=== PATIENT | male | born 1960 | race Two or more races ===

== ENCOUNTER 2016-12-12 07:55 | Emergency (ER) | payer OTHER, MEDICARE ==
[2016-12-12 08:09] VITALS: BP 119/88
--- NOTE | 2016-12-12 09:33 | ER Document Report ---
ED Substance Abuse / Acc. OD - General Chief Complaint: ETOH Abuse Stated Complaint: ALCOHOL WITHDRAWAL Notes: Patient is a 48-year-old male presents emergency Department complaining of epigastric discomfort that started this morning. Patient states that he has a known history of chronic alcohol abuse but hasn't been drinking for at least 6 months. Patient states that yesterday Tuesday during the day he had a couple of mixed drinks approximately 5 drinks of Bacardi with soda throughout the day. he denies any nausea or vomiting yesterday for abdominal pain. Patient states that he woke up this morning with some epigastric discomfort and given his history he started to become severe evaluated. At this time she states that he does have some epigastric burning but otherwise denies any nausea, vomiting, diarrhea, constipation Past medical history significant for GERD, hyperlipidemia Past surgical history significant for C3-C7 spinal fusion, appendectomy Social history significant for history of alcohol abuse, nonsmoker, no drug use PCP at the [facility] TRAVEL OUTSIDE OF THE [place] IN LAST 30 DAYS: No - Related Data Allergies/Adverse Reactions: Penicillins Allergy (Unknown, Verified 12/12/16 08:13) Past Medical History - Social History Smoking Status: Never Smoker Chew tobacco use (# tins/day): No Frequency of alcohol use: Heavy Drug Abuse: None Family History: Reviewed & Not Pertinent - Past Medical History Cardiac Medical History: Reports: Hx Hypercholesterolemia Renal/ Medical History: Denies: Hx Peritoneal Dialysis GI Medical History: Reports: Hx Gastroesophageal Reflux Disease Psychiatric Medical History: Reports: Hx Anxiety, Hx Depression Past Surgical History: Reports: Hx Appendectomy, Hx Herniorrhaphy, Hx Orthopedic Surgery - C3-7 FUSION, LEFT SHOULDER SURGERY. - Immunizations Hx Diphtheria, Pertussis, Tetanus Vaccination: Yes Review of Systems - Review of Systems Constitutional: No symptoms reported EENT: No symptoms reported Cardiovascular: No symptoms reported Respiratory: No symptoms reported Gastrointestinal: See HPI Genitourinary: No symptoms reported Male Genitourinary: No symptoms reported Musculoskeletal: No symptoms reported Skin: No symptoms reported Hematologic/Lymphatic: No symptoms reported Neurological/Psychological: No symptoms reported Physical Exam - Vital signs Vitals: Temp Pulse Resp BP Pulse Ox 97.3 F 109 H 20 119/88 H 100 12/12/16 08:07 12/12/16 08:07 12/12/16 08:07 12/12/16 08:07 12/12/16 08:07 - Notes Notes: PHYSICAL EXAM GENERAL: Alert, interacts well. HEAD: Normocephalic, atraumatic. EYES: Pupils equal, round, and reactive to light. Extraocular movements intact. ENT: Oral mucosa moist, tongue midline. NECK: Full range of motion. Supple. Trachea midline. LUNGS: Clear to auscultation bilaterally, no wheezes, rales, or rhonchi. No respiratory distress. HEART: Regular rate and rhythm. No murmurs, gallops, or rubs. ABDOMEN: Soft, nondistended, nontender. No guarding, rebound, or rigidity.. Bowel sounds present in all 4 quadrants. EXTREMITIES: Moves all 4 extremities spontaneously. No edema, radial and dorsalis pedis pulses 2/4 bilaterally. No cyanosis. NEUROLOGICAL: Alert and oriented x3. Normal speech. PSYCH: Normal affect, normal mood. SKIN: Warm, dry, normal turgor. No rashes or lesions noted. Course - Re-evaluation Re-evalutation: 12/12/16 09:37 The patient has decided not to proceed with further recommended testing or treatment to determine the cause of their symptoms. The risks and alternatives to the recommendation were discussed and the patient voiced understanding. The patient appears clinically to have capacity to make this decision. The patient was instructed that he/she could return to the ER at any time to complete the testing or treatment. - Vital Signs Vital signs: Temp Pulse Resp BP Pulse Ox 97.3 F 109 H 20 119/88 H 100 12/12/16 08:07 12/12/16 08:07 12/12/16 08:07 12/12/16 08:07 12/12/16 08:07 Discharge - Discharge Clinical Impression: Epigastric pain Condition: Good Disposition: AGAINST MEDICAL ADVICE
== END 2016-12-12 09:22 | disposition left against medical advice (07) ==
LOC: ER 07:55
DX: R10.13 Epigastric pain (principal); F10.239 Alcohol dependence with withdrawal, unspecified
CPT/HCPCS: 99283

== ENCOUNTER 2016-12-15 05:00 | Emergency (ER) | payer OTHER, MEDICARE ==
[2016-12-15 05:35] LABS: ABSOLUTE LYMPHOCYTES (AUTO) 1.3 10^3/uL (0.5-4.7); ABSOLUTE MONOCYTES (AUTO) 0.5 10^3/uL (0.1-1.4); ABSOLUTE NEUT (AUTO) 3.8 10^3/uL (1.7-8.2); BASOPHILS % (AUTO) 0.8 % (0-2); EOSINOPHILS % (AUTO) 0.5 % (0-6); HEMATOCRIT 44.7 % (37.9-51.0); HEMOGLOBIN 15.3 g/dL (13.5-17.0); HGB HCT DIFFERENCE 1.2; MEAN CORPUSCULAR HEMOGLOBIN 30.3 pg (27.0-33.4); MEAN CORPUSCULAR HGB CONC 34.3 g/dL (32.0-36.0); MEAN CORPUSCULAR VOLUME 88 fl (80-97); RED BLOOD COUNT 5.05 10^6/uL (4.35-5.55); RED CELL DISTRIBUTION WIDTH 13.1 % (11.5-14.0); SEGMENTED NEUTROPHILS % (AUTO) 67.7 % (42-78); WHITE BLOOD COUNT 5.6 10^3/uL (4.0-10.5)
[2016-12-15 05:49] LABS: ALANINE AMINOTRANSFERASE 101 U/L (21-72); ALKALINE PHOSPHATASE 69 U/L (38-126); ANION GAP 10 (5-19); ASPARTATE AMINO TRANSFERASE 117 U/L (17-59); BILIRUBIN,TOTAL 2.2 mg/dL (0.2-1.3); BLOOD UREA NITROGEN 13 mg/dL (7-20); CALCIUM 9.3 mg/dL (8.4-10.2); CARBON DIOXIDE 27 mmol/L (22-30); CHLORIDE 103 mmol/L (98-107); CREATININE RESULT 1.01 mg/dL (0.52-1.25); GLUCOSE 96 mg/dL (75-110); LIPASE 182.3 U/L (23-300); POTASSIUM 4.4 mmol/L (3.6-5.0); TOTAL PROTEIN 6.9 g/dL (6.3-8.2)
[2016-12-15 06:38] LABS: ADD ON TESTING BLD IN LAB ACKNOWLEDGE
[2016-12-15] MEDS ORDERED: ONDANSETRON HCL INJ/PF 4 MG/2 ML SDV IV ONE (06:42)
[2016-12-15] MEDS ORDERED: NORMAL SALINE 1000 ML 1,000 ML IV ONE ×2 (06:42→07:31)
--- NOTE | 2016-12-15 06:43 | ER Document Report ---
ED GI/ - General Time seen by provider: 06:36 Mode of Arrival: Ambulatory Information source: Patient TRAVEL OUTSIDE OF THE U[place] IN LAST 30 DAYS: No - HPI Patient complains to provider of: Other - nausea Onset: Other - see HPI note Associated symptoms: Lightheaded, Nausea <CATHI BENITO - Last Filed: 12/15/16 07:22> <SYL HART - Last Filed: 12/15/16 11:14> - General Chief Complaint: Abdominal Pain Stated Complaint: ABDOMINAL PAIN Notes: Patient is a 56 year old male presenting to the emergency department for nausea and lightheadedness since yesterday. Patient states he "feels faint and lightheaded." Patient was seen in [facility] ED on 12/12/14 and [facility] records indicate the patient had been heavily drinking EtOH on Tuesday (12/11/16) after supposedly he had quit drinking EtOH for the previous 6 months. Patient states that he was also seen at [facility] on Tuesday. Triage not states patient complains of abdominal pain however, patient denies any abdominal pain during exam. Patient denies any cough. (CATHI BENITO) - Related Data Allergies/Adverse Reactions: Penicillins Allergy (Unknown, Verified 12/12/16 08:13) Past Medical History - General Information source: Patient - Social History Smoking Status: Never Smoker Cigarette use (# per day): No Chew tobacco use (# tins/day): No Smoking Education Provided: No Frequency of alcohol use: Heavy Family History: None GI Medical History: Reports: Hx Gastroesophageal Reflux Disease, Other - pancreatitis Psychiatric Medical History: Reports: Hx Anxiety, Hx Depression Past Surgical History: Reports: Hx Appendectomy, Hx Herniorrhaphy, Hx Orthopedic Surgery - C3-7 FUSION, LEFT SHOULDER SURGERY. - Immunizations Hx Diphtheria, Pertussis, Tetanus Vaccination: Yes <CATHI BENITO - Last Filed: 12/15/16 07:22> Review of Systems - Review of Systems Constitutional: No symptoms reported EENT: No symptoms reported Cardiovascular: See HPI, Lightheaded Respiratory: No symptoms reported Gastrointestinal: See HPI, Nausea Genitourinary: No symptoms reported Male Genitourinary: No symptoms reported Musculoskeletal: No symptoms reported Skin: No symptoms reported Hematologic/Lymphatic: No symptoms reported Neurological/Psychological: No symptoms reported -: Yes All other systems reviewed and negative <CATHI BENITO - Last Filed: 12/15/16 07:22> Physical Exam - General General appearance: Appears well, Alert In distress: Mild - HEENT Head: Normocephalic, Atraumatic Eyes: Normal Pupils: PERRL Mucous membranes: Dry - Respiratory Respiratory status: No respiratory distress Chest status: Nontender Breath sounds: Normal Chest palpation: Normal - Cardiovascular Rhythm: Regular Heart sounds: Normal auscultation Murmur: No - Abdominal Inspection: Normal Distension: No distension Bowel sounds: Normal Tenderness: Nontender Organomegaly: No organomegaly - Back Back: Normal, Nontender - Extremities General upper extremity: Normal inspection, Normal ROM, Normal strength General lower extremity: Normal inspection, Normal ROM, Normal strength - Neurological Neuro grossly intact: Yes Cognition: Normal Orientation: AAOx4 Alexx Coma Scale Eye Opening: Spontaneous [place] Coma Scale Verbal: Oriented Alexx Coma Scale Motor: Obeys Commands [place] Coma Scale Total: 15 Speech: Normal - Psychological Associated symptoms: Normal affect, Normal mood - Skin Skin Temperature: Warm Skin Moisture: Dry <CATHI BENITO - Last Filed: 12/15/16 07:22> <SYL HART - Last Filed: 12/15/16 11:14> - Vital signs Vitals: Resp 18 12/15/16 05:28 Course - Laboratory Result Diagrams: 12/15/16 05:20 12/15/16 05:20 <JIGNACATHI - Last Filed: 12/15/16 07:22> - Laboratory Result Diagrams: 12/15/16 05:20 12/15/16 05:20 <SYL HART - Last Filed: 12/15/16 11:14> - Re-evaluation Re-evalutation: 12/15/16 09:09 The patient is nauseous again, is frequently coughing and spitting and trying to retch. He has not urinated much. Looking into the orders, it would appear he never got the first liter of normal saline that was ordered initially. The second liter that was ordered almost an hour later appears to have been given. 12/15/16 10:53 At this time the patient is sound asleep and snoring. He has received a total of 3 L of IV fluids. 12/15/16 11:06 Patient is now awake for vital signs. He states he is feeling much better and the nausea has improved "most definitely". (SYL HART) - Vital Signs Vital signs: Temp Pulse Resp BP Pulse Ox 99.3 F 108 H 18 140/108 H 96 12/15/16 05:35 12/15/16 05:35 12/15/16 05:35 12/15/16 05:35 12/15/16 05:35 - Laboratory Laboratory results interpreted by me: 12/15/16 12/15/16 05:20 05:20 Total Bilirubin 2.2 H AST 117 H ALT 101 H Creatine Kinase 678 H Discharge <CATHI BENITO - Last Filed: 12/15/16 07:22> <SYL HART - Last Filed: 12/15/16 11:14> - Discharge Clinical Impression: Nausea, Dizzy, Lightheaded Condition: Stable Disposition: HOME, SELF-CARE Additional Instructions: Take the medication as prescribed for nausea, and nerves. Drink plenty of cool clear liquids today. Completely avoid alcohol consumption in the future. Follow-up with your doctor if not improving. RETURN TO THE EMERGENCY ROOM IF ANY NEW OR WORSENING SYMPTOMS. Prescriptions: Chlordiazepoxide HCl [Librium 25 mg Capsule] 1 cap PO QID #12 capsule Metoclopramide HCl [Reglan 10 mg Tablet] 10 mg PO QID PRN #12 tablet PRN Reason: For Nausea/Vomiting Scribe Attestation: 12/15/16 11:14 I personally performed the services described in the documentation, reviewed and edited the documentation which was dictated to the scribe in my presence, and it accurately records my words and actions. (SYL HART) Scribe Documentation - Scribe Written by Lacey:: Cathi Benito 12/15/16 7:25 acting as scribe for :: Aldo <CATHI BENITO - Last Filed: 12/15/16 07:22>
[2016-12-15 06:52] LABS: APPEARANCE,URINE CLEAR; BILIRUBIN,URINE NEGATIVE (NEGATIVE); GLUCOSE, URINE NEGATIVE (NEGATIVE); KETONES,URINE NEGATIVE (NEGATIVE); LEUKOCYTE ESTERASE,URINE NEGATIVE (NEGATIVE); NITRITE,URINE NEGATIVE (NEGATIVE); PROTEIN,URINE NEGATIVE (NEGATIVE); URINE SPECIFIC GRAVITY 1.014; UROBILINOGEN,URINE NEGATIVE mg/dL (<2.0)
[2016-12-15 07:37] LABS: ALCOHOL < 10 mg/dL (NONE DETECTED)
[2016-12-15 07:38] LABS: ADD ON TESTING BLD IN LAB ACKNOWLEDGE
[2016-12-15 08:08] LABS: CREATINE KINASE 678 U/L (55-170)
[2016-12-15 08:23] LABS: CREATINE KINASE MB 3.52 ng/mL (<4.55)
[2016-12-15 08:24] LABS: TROPONIN I < 0.012 ng/mL
[2016-12-15] MEDS ORDERED: METOCLOPRAMIDE HCL INJ/PF 10 MG/2 ML SDV IV ONE (09:03)
[2016-12-15] MEDS ORDERED: LORAZEPAM INJ 2 MG/1 ML VIAL IV ONE (09:03)
[2016-12-15] MEDS ORDERED: DEXTROSE 5%-NORMAL SALINE 1,000 ML IV ONE (09:04)
[2016-12-15 11:25] VITALS: BP 157/99
== END 2016-12-15 11:25 | disposition home or self-care (01) ==
LOC: ER 05:00
DX: R42 Dizziness and giddiness (principal); R11.0 Nausea; R10.9 Unspecified abdominal pain
CPT/HCPCS: 99284; 96361; 96374; 96375; 36415; 82553; 80307; 82550; 83690; 85025; 80053; 81001; 84484; J2765; J2060; J2405; J7030

== ENCOUNTER 2016-12-16 16:24 | Emergency (ER) | payer OTHER, MEDICARE ==
[2016-12-16] MEDS ORDERED: MAG HYDROX/AL HYDROX/SIMETH SUSP 30 ML UDCUP PO ONE (16:57)
[2016-12-16] MEDS ORDERED: METOCLOPRAMIDE HCL ORAL SOLN 10 MG/10 ML UDCUP PO ONE (16:57)
[2016-12-16] MEDS ORDERED: LIDOCAINE 2% VISCOUS SOLN 20 ML UDCUP PO ONE (16:57)
--- NOTE | 2016-12-16 16:57 | ER Document Report ---
ED Medical Screen (RME) - General Stated Complaint: ABDOMINAL PAIN Time seen by provider: 16:54 Mode of Arrival: Ambulatory Information source: Patient Notes: 56-year-old male presents to ED for abdominal pain for 3 days. States he has had this last alcohol 5 days ago. States he was seen last night and was discharged home diagnosed with nausea and dizziness and lightheadedness. He states that his pain is still pretty significant generalized abdominal pain. Patient states he has vomited twice today after taken Zofran and Ativan. I have greeted and performed a rapid initial assessment of this patient. A comprehensive ED assessment and evaluation of the patient, analysis of test results and completion of medical decision making process will be conducted by an additional ED providers. TRAVEL OUTSIDE OF THE [place] IN LAST 30 DAYS: No - Related Data Allergies/Adverse Reactions: Penicillins Allergy (Unknown, Verified 12/16/16 16:54) Past Medical History - Past Medical History Cardiac Medical History: Reports: Hx Hypercholesterolemia Renal/ Medical History: Denies: Hx Peritoneal Dialysis GI Medical History: Reports: Hx Gastroesophageal Reflux Disease Psychiatric Medical History: Reports: Hx Anxiety, Hx Depression Past Surgical History: Reports: Hx Appendectomy, Hx Herniorrhaphy, Hx Orthopedic Surgery - C3-7 FUSION, LEFT SHOULDER SURGERY. - Immunizations Hx Diphtheria, Pertussis, Tetanus Vaccination: Yes Physical Exam - Vital signs Vitals: Temp Pulse Resp BP Pulse Ox 97.5 F 96 18 152/95 H 97 12/16/16 16:27 12/16/16 16:27 12/16/16 16:27 12/16/16 16:27 12/16/16 16:27 Course - Vital Signs Vital signs: Temp Pulse Resp BP Pulse Ox 97.5 F 96 18 152/95 H 97 12/16/16 16:27 12/16/16 16:27 12/16/16 16:27 12/16/16 16:27 12/16/16 16:27
[2016-12-16] MEDS ORDERED: ONDANSETRON 4 MG TAB.RAPDIS PO ONE (16:59)
[2016-12-16 17:34] LABS: ABSOLUTE EOSINOPHILS # (AUTO) 0.1 10^3/uL (0.0-0.6); ABSOLUTE MONOCYTES (AUTO) 0.5 10^3/uL (0.1-1.4); ABSOLUTE NEUT (AUTO) 5.4 10^3/uL (1.7-8.2); BASOPHILS % (AUTO) 0.4 % (0-2); EOSINOPHILS % (AUTO) 0.7 % (0-6); HEMATOCRIT 43.1 % (37.9-51.0); HEMOGLOBIN 15.2 g/dL (13.5-17.0); HGB HCT DIFFERENCE 2.5; LYMPHOCYTES % (AUTO) 25.2 % (13-45); MEAN CORPUSCULAR HEMOGLOBIN 31.4 pg (27.0-33.4); MEAN CORPUSCULAR HGB CONC 35.2 g/dL (32.0-36.0); MEAN CORPUSCULAR VOLUME 89 fl (80-97); MONOCYTES % (AUTO) 6.8 % (3-13); RED BLOOD COUNT 4.83 10^6/uL (4.35-5.55); SEGMENTED NEUTROPHILS % (AUTO) 66.9 % (42-78)
[2016-12-16 17:39] LABS: APPEARANCE,URINE CLEAR; BILIRUBIN,URINE NEGATIVE (NEGATIVE); GLUCOSE, URINE NEGATIVE (NEGATIVE); KETONES,URINE NEGATIVE (NEGATIVE); LEUKOCYTE ESTERASE,URINE NEGATIVE (NEGATIVE); NITRITE,URINE NEGATIVE (NEGATIVE); PROTEIN,URINE NEGATIVE (NEGATIVE); URINE SPECIFIC GRAVITY 1.006; UROBILINOGEN,URINE NEGATIVE mg/dL (<2.0)
[2016-12-16 17:46] LABS: ALANINE AMINOTRANSFERASE 78 U/L (21-72); ALBUMIN 4.2 g/dL (3.5-5.0); ALKALINE PHOSPHATASE 79 U/L (38-126); ANION GAP 7 (5-19); ASPARTATE AMINO TRANSFERASE 71 U/L (17-59); BILIRUBIN,TOTAL 2.3 mg/dL (0.2-1.3); BLOOD UREA NITROGEN 8 mg/dL (7-20); CALCIUM 9.9 mg/dL (8.4-10.2); CARBON DIOXIDE 30 mmol/L (22-30); CHLORIDE 103 mmol/L (98-107); GLUCOSE 89 mg/dL (75-110); LIPASE 115.2 U/L (23-300); POTASSIUM 4.5 mmol/L (3.6-5.0); SODIUM 139.5 mmol/L (137-145); TOTAL PROTEIN 7.2 g/dL (6.3-8.2)
--- NOTE | 2016-12-16 18:48 | ER Document Report ---
ED GI/ - General Mode of Arrival: Ambulatory Information source: Patient TRAVEL OUTSIDE OF THE [place] IN LAST 30 DAYS: No - HPI Patient complains to provider of: Vomiting Onset: Other - see HPI note Associated symptoms: Dizzy, Lightheaded, Nausea, Vomiting <CATHI BENITO - Last Filed: 12/16/16 19:10> <CHARLESLAURA - Last Filed: 12/31/16 05:53> - General Chief Complaint: Abdominal Pain Stated Complaint: ABDOMINAL PAIN Notes: Patient is a 56 year old male presenting to the emergency department for abdominal pain for the past 3 days. Patient was seen in the ED multiple times over the last few days. Patient has complained of nausea and was seen last night for this symptom. Patient was discharged with medications to treat his nausea and dizziness. Patient states he vomited x2 after taking zofran and ativan. Patient did not fill his prescriptions from 12/15/16 because he didn't have a ride. PCP is at [facility] with Dr. Vann. Patient has not seen this physician for the past 2 months. Patient denies gastritis and ulcers. Patient had an endoscopy with Dr. Clancy last year. Patient last had EtOH a few days ago. Patient states he does not think he has come for EtOH withdrawal. Patient was seen at [facility] and at [facility] multiple times for nausea. Patient states he was going to stop drinking with a program. Patient stopped drinking and then relapsed. Patient is being pushed to stop drinking by his /family. Patient states that he lost his child in the hospital and that is when he started drinking EtOH. 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 Patient states that he wants to stop drinking and he needs help. Patient is explained that the prescriptions given to him are to help him with his EtOH withdrawal. Patient denies any diagnosis of cirrhosis. Patient has been drinking both beer and liquor; beer first and then the liquor. Patient is allergic to penicillin. (CATHI BENITO) - Related Data Allergies/Adverse Reactions: Penicillins Allergy (Unknown, Verified 12/16/16 17:00) Home Medications: Current Home Medications Esomeprazole Magnesium [Nexium 24Hr] 20 mg PO DAILY 12/16/16 [History] Oxycodone HCl [Oxycontin] 10 mg PO TID 12/16/16 [History] Past Medical History - General Information source: Patient - Social History Smoking Status: Never Smoker Cigarette use (# per day): No Chew tobacco use (# tins/day): No Frequency of alcohol use: see HPI note Drug Abuse: None Lives with: Family, Spouse/Significant other Family History: None Patient has suicidal ideation: No Patient has homicidal ideation: No - Past Medical History Cardiac Medical History: Reports: Hx Hypercholesterolemia GI Medical History: Reports: Hx Gastroesophageal Reflux Disease Psychiatric Medical History: Reports: Hx Anxiety, Hx Depression Past Surgical History: Reports: Hx Appendectomy, Hx Herniorrhaphy, Hx Orthopedic Surgery - C3-7 FUSION, LEFT SHOULDER SURGERY. - Immunizations Hx Diphtheria, Pertussis, Tetanus Vaccination: Yes <CATHI BENITO - Last Filed: 12/16/16 19:10> Review of Systems - Review of Systems Constitutional: No symptoms reported EENT: No symptoms reported Cardiovascular: See HPI, Dizziness, Lightheaded Respiratory: No symptoms reported Gastrointestinal: See HPI, Nausea, Vomiting Genitourinary: No symptoms reported Male Genitourinary: No symptoms reported Musculoskeletal: No symptoms reported Skin: No symptoms reported Hematologic/Lymphatic: No symptoms reported Neurological/Psychological: No symptoms reported -: Yes All other systems reviewed and negative <CATHI BENITO - Last Filed: 12/16/16 19:10> Physical Exam - Vital signs Interpretation: Normal - General General appearance: Appears well, Alert In distress: Mild - HEENT Head: Normocephalic, Atraumatic Eyes: Normal Pupils: PERRL Mucous membranes: Moist - Respiratory Respiratory status: No respiratory distress Chest status: Nontender Breath sounds: Normal Chest palpation: Normal - Cardiovascular Rhythm: Regular Heart sounds: Normal auscultation Murmur: No - Abdominal Inspection: Normal Distension: No distension Bowel sounds: Normal Tenderness: Nontender Organomegaly: No organomegaly - Back Back: Normal, Nontender - Extremities General upper extremity: Normal inspection, Normal ROM, Normal strength General lower extremity: Normal inspection, Normal ROM, Normal strength - Neurological Neuro grossly intact: Yes Cognition: Normal Orientation: AAOx4 Alexx Coma Scale Eye Opening: Spontaneous [place] Coma Scale Verbal: Oriented Alexx Coma Scale Motor: Obeys Commands Alexx Coma Scale Total: 15 Speech: Normal - Psychological Associated symptoms: Normal affect, Normal mood - Skin Skin Temperature: Warm Skin Moisture: Dry <CATHI BENITO - Last Filed: 12/16/16 19:10> Course - Laboratory Result Diagrams: 12/16/16 17:10 12/16/16 17:10 <CATHI BENITO - Last Filed: 12/16/16 19:10> - Laboratory Result Diagrams: 12/16/16 17:10 12/16/16 17:10 <LAURA SOTO - Last Filed: 12/31/16 05:53> - Re-evaluation Re-evalutation: 12/16/16 20:12 I personally performed the services described in the documentation, reviewed and edited the documentation which was dictated to my scribe in my presence, and it accurately records my words and actions. Patient presents to the emergency Department with chief complaint of stomachache. Had an extensive evaluation with patient at the bedside and is previous records. He has been seen at [facility] and then the emergency department twice in the last week and half. He has a history of chronic alcoholism. And liquors a retired Marine. Doesn't see his primary care physician at the [place]. Has never been told he had cirrhosis or ascites. Has been trying to quit because his of 35 years wants him to do so and he wants to try to quit but he's been trying to do it on his own. Seen and evaluated in the emergency department on 312 and 3:15 no alcohol in his system today abdomen is soft there's no guarding rebound or rigidity. He has a history of gastritis which I suspect is part of the palm he does not have pancreatitis his labs are not normal he has a prescription for Librium and Reglan. He did not get filled I discussed this with him he said he didn't think it would help I told him Librium would significantly help his alcohol withdrawal symptoms he said he will get that filled first thing tomorrow morning tried to give him a dose here but none in the pharmacy so I gave him one Ativan to go home with. He is going to get his Librium filled he is tolerating by mouth fluids he does not need IV hydration oral rehydration discussed at length. HIS primary care physician in 2-3 days no alcohol in his system currently or signs of withdrawal and discussed reasons for ED return sooner 12/16/16 20:29 (LAURA SOTO) - Vital Signs Vital signs: Temp Pulse Resp BP Pulse Ox 97.6 F 90 16 142/85 H 98 12/16/16 20:27 12/16/16 20:27 12/16/16 20:27 12/16/16 20:27 12/16/16 20:27 - Laboratory Laboratory results interpreted by me: 12/16/16 12/16/16 12/16/16 17:10 17:10 17:10 Total Bilirubin 2.3 H AST 71 H ALT 78 H Creatine Kinase 935 H Acetaminophen < 10 L - EKG Interpretation by Me Additional EKG results interpreted by me: 12/16/16 20:28 (LAURA SOTO) Critical Care Note - Critical Care Note Total time excluding time spent on procedures (mins): 45 <LAURA SOTO - Last Filed: 12/31/16 05:53> Discharge <CATHI BENITO - Last Filed: 12/16/16 19:10> <LAURA SOTO - Last Filed: 12/31/16 05:53> - Discharge Clinical Impression: Abdominal pain, Alcohol abuse Condition: Stable Disposition: HOME, SELF-CARE Additional Instructions: Abdominal Pain There are many causes of abdominal pain. Pain can mean a serious problem requiring surgery (such as appendicitis). It can also be an innocent problem that goes away on its own (such as a viral infection). Often, time must pass to determine the cause of pain. The physician does not feel that hospitalization is necessary, at present. Things may change within the next 24 hours. Call the doctor or come back for re- examination if any problems occur, such as: (1) Pain that becomes more severe, steady, or becomes concentrated in one specific area. Also, pain that is more severe with movement or coughing. (2) Vomiting that persists or becomes more frequent. (3) Blood in the vomitus, urine, or bowel movements. Blood in the stool may have a tarry or black appearance. (4) Shaking chills or fever greater than 100 degrees F. (5) The abdomen becomes more distended or swollen. (6) Bowel movements cease. (7) Failure to improve as expected. We have discussed getting your Librium and Reglan filled tomorrow. That will help you with any type of withdrawal. You must follow-up with your primary care physician in 2-3 days return for increasing worsening or new symptoms you have a history of gastritis on also placed on stomach medication. Prescriptions: Omeprazole Magnesium [Prilosec Otc] 20 mg PO DAILY #15 tablet. Sucralfate [Carafate 1 gm Tablet] 1 gm PO ACHS #120 tablet Scribe Documentation - Scribe Written by Lacey:: Cathi Benito 12/16/16 19:20 acting as scribe for :: Charles <CATHI BENITO - Last Filed: 12/16/16 19:10>
[2016-12-16 19:02] LABS: ALCOHOL < 10 mg/dL (NONE DETECTED)
[2016-12-16 19:11] LABS: URINE BARBITURATES SCREEN NEGATIVE; URINE METHADONE SCREEN NEGATIVE; URINE OPIATES LOW NEGATIVE; URINE PHENCYCLIDINE SCREEN NEGATIVE
[2016-12-16] MEDS ORDERED: NORMAL SALINE 1000 ML 1,000 ML IV ONE (19:16)
[2016-12-16] MEDS ORDERED: LORAZEPAM 1 MG TABLET PO ONE (20:11)
[2016-12-16 20:42] VITALS: BP 142/85
== END 2016-12-16 20:27 | disposition home or self-care (01) ==
LOC: ER 16:24
DX: F10.10 Alcohol abuse, uncomplicated (principal); R42 Dizziness and giddiness; R10.9 Unspecified abdominal pain; R11.2 Nausea with vomiting, unspecified; E78.00 Pure hypercholesterolemia, unspecified; K21.9 Gastro-esophageal reflux disease without esophagitis; Z98.1 Arthrodesis status; Z88.0 Allergy status to penicillin
CPT/HCPCS: 99284; 36415; 80307 ×3; 82550; 83690; 85025; 80053; 81001; S0119; J3490

== ENCOUNTER 2016-12-17 00:37 | Emergency (ER) | payer OTHER, MEDICARE ==
[2016-12-17 00:46] VITALS: BP 142/92
[2016-12-17] MEDS ORDERED: MAG HYDROX/AL HYDROX/SIMETH SUSP 30 ML UDCUP PO ONE (04:59)
[2016-12-17] MEDS ORDERED: METOCLOPRAMIDE HCL ORAL SOLN 10 MG/10 ML UDCUP PO ONE (04:59)
[2016-12-17] MEDS ORDERED: LIDOCAINE 2% VISCOUS SOLN 20 ML UDCUP PO ONE (04:59)
[2016-12-17] MEDS ORDERED: SUCRALFATE 1 GM TABLET PO ONE (05:04)
[2016-12-17] MEDS ORDERED: LANSOPRAZOLE 30 MG TAB.RAP.DR PO ONE (05:04)
--- NOTE | 2016-12-17 05:41 | ER Document Report ---
ED GI/ - General Chief Complaint: Abdominal Pain Stated Complaint: ABDOMINAL PAIN Mode of Arrival: Ambulatory Information source: Patient Notes: 56-year-old male presents to the emergency department complaining for abdominal pain over the last 3 days. This is patient's third visit last 3 days. States returned tonight because he has not been able to fill the prescriptions he was given after the past 2 visits. Reports patient initially was to his mid abdomen and now has to epigastric area. Describes pain as burning and nonradiating. Reports history of alcohol abuse and denies any withdrawal symptoms at this time. Denies any fever, nausea/vomiting, hematemesis, chest pain, or shortness of breath. TRAVEL OUTSIDE OF THE [place] IN LAST 30 DAYS: No - HPI Patient complains to provider of: Abdominal pain Similar symptoms previously: Yes Recently seen / treated by doctor: Yes - Related Data Allergies/Adverse Reactions: Penicillins Allergy (Unknown, Verified 12/16/16 17:00) Past Medical History - General Information source: Patient - Social History Smoking Status: Never Smoker Chew tobacco use (# tins/day): No Frequency of alcohol use: Heavy Drug Abuse: None Lives with: Family Family History: Reviewed & Not Pertinent Patient has suicidal ideation: No Patient has homicidal ideation: No - Past Medical History Cardiac Medical History: Reports: Hx Hypercholesterolemia Renal/ Medical History: Denies: Hx Peritoneal Dialysis GI Medical History: Reports: Hx Gastroesophageal Reflux Disease Psychiatric Medical History: Reports: Hx Anxiety, Hx Depression Past Surgical History: Reports: Hx Appendectomy, Hx Herniorrhaphy, Hx Orthopedic Surgery - C3-7 FUSION, LEFT SHOULDER SURGERY. - Immunizations Hx Diphtheria, Pertussis, Tetanus Vaccination: Yes Review of Systems - Review of Systems Constitutional: No symptoms reported EENT: No symptoms reported Cardiovascular: No symptoms reported Respiratory: No symptoms reported Gastrointestinal: See HPI Genitourinary: No symptoms reported Male Genitourinary: No symptoms reported Musculoskeletal: No symptoms reported Skin: No symptoms reported Hematologic/Lymphatic: No symptoms reported Neurological/Psychological: No symptoms reported -: Yes All other systems reviewed and negative Physical Exam - Vital signs Vitals: Temp Pulse Resp BP Pulse Ox 98.1 F 105 H 20 142/92 H 98 12/17/16 00:43 12/17/16 00:43 12/17/16 00:43 12/17/16 00:43 12/17/16 00:43 Interpretation: Normal - General General appearance: Appears well, Alert In distress: None - HEENT Head: Normocephalic, Atraumatic Eyes: Normal Pupils: PERRL - Respiratory Respiratory status: No respiratory distress Chest status: Nontender Breath sounds: Normal Chest palpation: Normal - Cardiovascular Rhythm: Regular Heart sounds: Normal auscultation Murmur: No Pulses: Normal: Radial Normal capillary refill: Yes - Abdominal Inspection: Normal Distension: No distension Bowel sounds: Normal Tenderness: Nontender. No: Tender, McBurney's point, Harris's sign, Guarding, Rebound, Other Organomegaly: No organomegaly - Back Back: Normal, Nontender - Extremities General upper extremity: Normal inspection, Nontender, Normal color, Normal ROM , Normal strength, Normal temperature. No: Edema General lower extremity: Normal inspection, Nontender, Normal color, Normal ROM , Normal strength, Normal temperature, Normal weight bearing. No: Edema - Neurological Neuro grossly intact: Yes Cognition: Normal Orientation: AAOx4 Alexx Coma Scale Eye Opening: Spontaneous Alexx Coma Scale Verbal: Oriented Alexx Coma Scale Motor: Obeys Commands Alexx Coma Scale Total: 15 Speech: Normal Motor strength normal: LUE, RUE, LLE, RLE Sensory: Normal - Psychological Associated symptoms: Normal affect, Normal mood - Skin Skin Temperature: Warm Skin Moisture: Dry Skin Color: Normal Course - Re-evaluation Re-evalutation: 12/17/16 06:00 Patient hemodynamically stable, in no distress, afebrile, nontoxic, and appears well-hydrated. No suggestion of alcohol withdrawal symptoms at this time. Reviewed patient's previous visit records including lab work from within the last 24 hours. Patient received dose of Carafate and omeprazole in the ED with significant improvement in symptoms this morning. Encourage patient to fill his prescriptions that he has been given which include Librium, Reglan, omeprazole, and Carafate. The patient presents with abdominal pain without signs of peritonitis or other life-threatening or serious etiology. The patient appears stable for discharge and has been instructed to return immediately if the symptoms worsen in any way - Vital Signs Vital signs: Temp Pulse Resp BP Pulse Ox 98.1 F 105 H 20 142/92 H 98 12/17/16 00:43 12/17/16 00:43 12/17/16 00:43 12/17/16 00:43 12/17/16 00:43 Discharge - Discharge Clinical Impression: Epigastric abdominal pain Condition: Stable Disposition: HOME, SELF-CARE Instructions: Evaluation of Upper Abdominal Pain ([facility]), Prilosec (Acid Pump Inhibitor) ([facility]), Sucralfate ([facility]), Gastritis ([facility]) Additional Instructions: Fill your prescribed medication and take them as directed. Follow-up with your primary care provider this week. Return to the Emergency Department for any worsening symptoms or concerns. Forms: Elevated Blood Pressure
== END 2016-12-17 06:06 | disposition home or self-care (01) ==
LOC: ER 00:37
DX: K21.9 Gastro-esophageal reflux disease without esophagitis (principal); Z91.14 Patient's other noncompliance with medication regimen; R10.13 Epigastric pain; Z88.0 Allergy status to penicillin; Z90.49 Acquired absence of other specified parts of digestive tract
CPT/HCPCS: 99283